=== PATIENT | female | born 1995 | race Caucasian/White ===

== ENCOUNTER 2018-07-20 23:44 | Emergency (ER) | payer BC ==
[2018-07-21] MEDS ORDERED: Metoclopramide HCl 10 MG/2 ML VIAL ONE (00:51)
[2018-07-21] MEDS ORDERED: diphenhydrAMINE 50 MG/ML VIAL ONE (00:51)
[2018-07-21] MEDS ORDERED: Acetaminophen 500 MG TAB ONE (00:51)
[2018-07-21] MEDS ORDERED: Ketorolac Tromethamine 30 MG/ML VIAL ONE (00:51)
== END 2018-07-21 03:31 | disposition home or self-care (01) ==
LOC: ERS 23:44
DX: G97.1 Other reaction to spinal and lumbar puncture (principal); R51 Headache; J45.909 Unspecified asthma, uncomplicated
CPT/HCPCS: 96365; 96375; J1200; J1885; J2765